=== PATIENT | female | born 1985 | race Hispanic/Latino ===

== ENCOUNTER 2019-01-22 14:03 | Outpatient (CLI) | payer OTHER ==
--- NOTE | 2019-01-22 15:44 | CT ---
CT ABDOMEN AND PELVIS WITH IV CONTRAST 01/22/2019 CLINICAL INFORMATION: Periumbilical abdominal pain for past month. COMPARISON: 02/19/2017 Technique: Multiple contiguous axial CT images are obtained through the abdomen and pelvis with IV contrast. Cor onal reformatted images are provided. FINDINGS: Lower Chest: Minimal dependent bibasilar atelectasis Vessels: Abdominal aorta is normal in caliber without evidence of an aortic dissection. Abdomen: Portal vein:Patent Gallbladder: Not visualized likely surgically absent. Liver: Decreased attenuation diffusely suggesting diffuse fatty infiltration. Spleen: within normal limits. Pancreas: within normal limits. Adrenals: within normal limits. Kidneys: within normal limits. Bowel: Suggested wall thickening in the region of the gastric antrum and pylorus, but this is likely attributable to incomplete distention. Similar finding is seen involving the colon, greater in the region of the splenic flexure, which is also thought to be related to incomplete distention. Lesion i n the colon would be difficult to exclude given decompressed nature of the colon. Loops of small bowel are normal in caliber Appendix: Not visualized, but there are no secondary signs seen to suggest appendicitis. Peritoneum: No ascites or free air; no fluid collection. Mesentery and Retroperitoneum: No enlarged mesenteric or retroperitoneal lymph nodes. Abdominal Wall: Midline infraumbilical scarring is present in the subcutaneous soft tissues. Pelvis: Reproductive Organs: Evidence of interval hysterectomy. The cystic adnexal lesions seen bilaterally o n the prior study are no longer seen on the current exam. Pelvis there is mild linear stranding seen within the pelvis probably on the left may be related to m ild linear scarring. No fluid or fluid collection is seen in this region. Bladder: Incompletely decompressed and not evaluated on this exam. Bones: No suspicious lytic or sclerotic osseous lesions are identified. IMPRESSION: 1. No acute findings are seen in the abdomen or pelvis. 2. Fatty infiltration liver. 3. Hysterectomy. 4. Cholecystectomy. 5. Linear stranding left hemipelvis likely related to vessels and linear scarring. In addition, there is also suggestion thickening involving portions of the colon. This is also most likely attributable to incomplete distention. However, depending on clinical concern, colonoscopy would be b lorie study of choice for evaluation.
[2019-01-22] MEDS ORDERED: Iopamidol 370 76% 100 ML VIAL ONE (16:34)
== END 2019-01-22 14:04 | disposition home or self-care (01) ==
LOC: BICCT 14:03
DX: R10.33 Periumbilical pain (principal); K76.0 Fatty (change of) liver, not elsewhere classified; Z90.710 Acquired absence of both cervix and uterus; Z90.49 Acquired absence of other specified parts of digestive tract
CPT/HCPCS: 74177